=== PATIENT | female | born 1980 | race Caucasian/White ===

== ENCOUNTER 2023-01-29 23:50 | Emergency (ER) | payer MEDICAID ==
[~2023-01-29] VITALS: Ht 157.5 cm; Wt 72.6 kg
[2023-01-30 00:04] VITALS: BP_SYST 123
[2023-01-30] MEDS ORDERED: KETOROLAC TROMETHAMINE 60 MG/2 ML VIAL IM ONE (00:15)
[2023-01-30] MEDS ORDERED: NAPR-688 PO (00:56)
[2023-01-30] MEDS ORDERED: TRAM50TA2 PO (00:56)
[2023-01-30 01:06] VITALS: BP_SYST 126
== END 2023-01-30 01:06 | disposition home or self-care (01) ==
LOC: SED 23:50
DX: S20.211A Contusion of right front wall of thorax, initial encounter (principal); M54.6 Pain in thoracic spine; Z79.899 Other long term (current) drug therapy; W19.XXXA Unspecified fall, initial encounter; Y93.89 Activity, other specified; Y92.89 Other specified places as the place of occurrence of the external cause; Y99.8 Other external cause status
CPT/HCPCS: 99284; 71045; 71100; 96372; J1885

== ENCOUNTER 2023-08-16 07:49 | Emergency (ER) | payer MEDICAID ==
[~2023-08-16] VITALS: Ht 160 cm; Wt 79.8 kg
[~2023-08-16 07:49] MED LIST: NAPR-688 PO; TRAM50TA2 PO
[2023-08-16 07:50] VITALS: BP_SYST 138; PULSE 78; RESP 18; TEMP 97.2; O2SAT 99
[2023-08-16] MEDS ORDERED: IBUP-1969 PO (08:06)
[2023-08-16] MEDS ORDERED: PHEDM120 PO (08:06)
[2023-08-16] MEDS ORDERED: AMOX250C PO (08:06)
[2023-08-16 08:13] VITALS: RESP 18
[2023-08-16 08:15] VITALS: BP_SYST 108; PULSE 59; TEMP 97; O2SAT 97
== END 2023-08-16 08:12 | disposition home or self-care (01) ==
LOC: SED 07:49
DX: J02.9 Acute pharyngitis, unspecified (principal); R50.9 Fever, unspecified; R05.9 Cough, unspecified; Z79.899 Other long term (current) drug therapy
CPT/HCPCS: 99283

== ENCOUNTER 2024-01-28 03:02 | Emergency (ER) | payer MEDICAID ==
[~2024-01-28] VITALS: Ht 157.5 cm; Wt 84.8 kg
[~2024-01-28 03:02] MED LIST changes: +AMOX250C PO; +IBUP-1969 PO; +PHEDM120 PO
[2024-01-28 03:13] VITALS: BP_SYST 142; PULSE 63; RESP 19; TEMP 96.4; O2SAT 96
[2024-01-28] MEDS ORDERED: NAPR-686 PO (04:04)
[2024-01-28] MEDS ORDERED: METH-776 PO (04:04)
[2024-01-28] MEDS: HYDROcodone/ACETAMIN 5-325 MG TAB (NORCO/ VICODIN) PO ONE (04:38)
== END 2024-01-28 04:41 | disposition home or self-care (01) ==
LOC: SED 03:02
DX: M54.12 Radiculopathy, cervical region (principal); J45.909 Unspecified asthma, uncomplicated; Z79.899 Other long term (current) drug therapy
CPT/HCPCS: 72040; 99283

== ENCOUNTER 2024-03-21 15:10 | Emergency (ER) | payer MEDICAID ==
[~2024-03-21] VITALS: Ht 160 cm; Wt 84.8 kg
[~2024-03-21 15:10] MED LIST changes: +HYDR-3927 PO; +METH-776 PO; +NAPR-686 PO
[2024-03-21 15:44] VITALS: BP_SYST 125; PULSE 62; RESP 18; TEMP 97.4
[2024-03-21] MEDS ORDERED: CYCL10TA24 PO (18:57)
[2024-03-21] MEDS ORDERED: TRAM50TA2 PO (18:57)
[2024-03-21] MEDS: HYDROcodone/ACETAMIN 5-325 MG TAB (NORCO/ VICODIN) PO ONE (19:05)
[2024-03-21] MEDS: KETOROLAC TROMETHAMINE 60 MG/2 ML VIAL IM ONE (19:05)
[2024-03-21 19:51] VITALS: BP_SYST 125; PULSE 62; RESP 18; TEMP 97.4
== END 2024-03-21 18:45 | disposition home or self-care (01) ==
LOC: SED 15:10
DX: M54.12 Radiculopathy, cervical region (principal); M25.511 Pain in right shoulder; J45.909 Unspecified asthma, uncomplicated; E11.9 Type 2 diabetes mellitus without complications; I10 Essential (primary) hypertension
CPT/HCPCS: 99283; 96372; J1885

== ENCOUNTER 2024-05-21 10:23 | Emergency (ER) | payer MEDICAID ==
[~2024-05-21] VITALS: Ht 157.5 cm; Wt 84.8 kg
[~2024-05-21 10:23] MED LIST changes: +CYCL10TA24 PO
[2024-05-21 10:27] VITALS: BP_SYST 126; PULSE 69; RESP 16; TEMP 97.6; O2SAT 96
[2024-05-21] MEDS: KETOROLAC TROMETHAMINE 60 MG/2 ML VIAL IM ONE (11:04)
[2024-05-21 11:05] VITALS: BP_SYST 126; PULSE 69; RESP 16; TEMP 97.6; O2SAT 96
== END 2024-05-21 11:05 | disposition home or self-care (01) ==
LOC: SED 10:23
DX: G89.29 Other chronic pain (principal); M54.2 Cervicalgia; M54.9 Dorsalgia, unspecified; J45.909 Unspecified asthma, uncomplicated; E11.9 Type 2 diabetes mellitus without complications; Z79.899 Other long term (current) drug therapy; Z79.2 Long term (current) use of antibiotics
CPT/HCPCS: 99283; 96372; J1885